=== PATIENT | female | born 1960 | race Hispanic/Latino ===

== ENCOUNTER 2018-11-22 14:26 | Emergency (ER) | payer OTHER ==
[~2018-11-22 14:26] MED LIST: FISH OIL PO; GARLIC PO; MILK THISTLE PO; VITAMIN B PO
[2018-11-22] MEDS ORDERED: KETOROLAC TROMETHAMINE 30MG/ML ONE (15:12)
== END 2018-11-22 15:27 | disposition home or self-care (01) ==
LOC: EDH 14:26
DX: S93.402A Sprain of unspecified ligament of left ankle, initial encounter (principal); Z88.6 Allergy status to analgesic agent; Z98.890 Other specified postprocedural states; W18.49XA Other slipping, tripping and stumbling without falling, initial encounter; Y93.89 Activity, other specified; Y92.098 Other place in other non-institutional residence as the place of occurrence of the external cause; Y99.8 Other external cause status
CPT/HCPCS: 73610; 96372; 99284; J1885

== ENCOUNTER 2020-04-05 00:01 | Emergency (ER) | payer OTHER ==
[2020-04-05] MEDS ORDERED: KETOROLAC TROMETHAMINE 60 MG/2 ML VIAL ONE (00:44)
[2020-04-05] MEDS ORDERED: LIDOCAINE 5% TOPICAL PATCH TP ONE (00:45)
[2020-04-05 01:22] LABS: BASOPHILS % (AUTO) 0.6 % (0.0-5.0); EOSINOPHILS % (AUTO) 2.9 % (0.0-8.0); LYMPHOCYTES % (AUTO) 22.5 % (21.0-51.0); MEAN CORPUSCULAR HEMOGLOBIN 30.5 pg (27.0-33.0); MEAN CORPUSCULAR HGB CONC 34.2 g/dL (32.0-36.0); MEAN CORPUSCULAR VOLUME 89.3 fL (79-99); MONOCYTES % (AUTO) 8.7 % (3.0-13.0); NEUTROPHILS % (AUTO) 64.8 % (40.0-77.0); PLATELET COUNT (AUTO) 240 K/uL (130-400); RED BLOOD CELL COUNT(AUTO) 4.03 MIL/uL (4.00-5.50); RED CELL DISTRIBUTION WIDTH 12.3 % (11.0-15.5); WHITE BLOOD COUNT (AUTO) 6.6 K/uL (4.8-10.8)
[2020-04-05 01:34] LABS: CREATININE 1.1 mg/dL (0.5-1.5); POTASSIUM 3.9 mmol/L (3.5-5.1)
[2020-04-05] MEDS ORDERED: ACETAMINOPHEN 325 MG TAB ONE (01:52)
[2020-04-05] MEDS ORDERED: LORAZEPAM 1 MG TABLET ONE (01:52)
== END 2020-04-05 05:12 | disposition home or self-care (01) ==
LOC: EDH 00:01
DX: M54.2 Cervicalgia (principal)
CPT/HCPCS: 36415; 71045; 72040; 80048; 84484 ×2; 85025; 93005; 96374; 99285; J1885

== ENCOUNTER → 2022-02-13 | Emergency (ER) | payer OTHER | END | disposition left against medical advice (07) | LOC: EDH 17:47 | DX: R15.0 Incomplete defecation (principal); Z53.21 Procedure and treatment not carried out due to patient leaving prior to being seen by health care provider ==